=== PATIENT | female | born 2000 | race Two or more races ===

== ENCOUNTER 2024-01-06 09:05 | Emergency (ER) | payer OTHER ==
[~2024-01-06] VITALS: Ht 162.6 cm; Wt 68.0 kg
[2024-01-06] MEDS ORDERED: EAR WAX DROPS15 M1 OPHT (10:03)
[2024-01-06] MEDS ORDERED: GENTAMICIN SULFA5 ML OP (10:03)
== END 2024-01-06 10:24 | disposition home or self-care (01) ==
LOC: ER 09:06
DX: H66.90 Otitis media, unspecified, unspecified ear (principal)